=== PATIENT | male | born 1960 | race Two or more races ===

== ENCOUNTER 2023-04-22 15:22 | Emergency (ER) | payer OTHER ==
[~2023-04-22] VITALS: Ht 167.6 cm; Wt 110.0 kg
[2023-04-22] MEDS ORDERED: HYDROcodone-ACET 10/325MG TAB PO ONE (15:45)
[2023-04-22] MEDS ORDERED: IBUP-1455 PO (16:34)
[2023-04-22] MEDS ORDERED: HYDR-4902 PO (16:52)
[2023-04-22 18:27] VITALS: BP 148/78; PULSE 105; RESP 22; TEMP 98.2; O2SAT 98
== END 2023-04-22 18:34 | disposition home or self-care (01) ==
LOC: ER 15:22
DX: S40.012A Contusion of left shoulder, initial encounter (principal); S40.022A Contusion of left upper arm, initial encounter; Z79.1 Long term (current) use of non-steroidal anti-inflammatories (NSAID); W18.39XA Other fall on same level, initial encounter; Y93.89 Activity, other specified; Y92.89 Other specified places as the place of occurrence of the external cause; Y99.8 Other external cause status
CPT/HCPCS: 73030; 73080; 73090; 73130

== ENCOUNTER 2024-01-31 13:59 | Emergency (ER) | payer OTHER ==
[~2024-01-31] VITALS: Ht 170.2 cm; Wt 115.7 kg
[~2024-01-31 13:59] MED LIST: HYDR-4902 PO; IBUP-1455 PO
--- NOTE | 2024-01-31 15:25 | ED.PDOC ---
Eye-HPI HPI Comments HPI: Poor Historian. 63-year-old male presents to the emergency department for acute and chronic left neck swelling with pain. He said that the swelling got worse last night in the pain got worse last night. Patient was recently evaluated at [facility] and he was discharged home he went to see his PCP who told him you were diagnosed with some type of cancer they do not know which kind. He is supposed to follow up with Oncology this coming Tuesday. Denies any difficulty swallowing. This pain with trying to open his mouth fully. Vitals: Temp: 99.1 F Heart rate: 106 RR: 20 BP: 154/98 02 sat: 95 % on room air PMH: HTN, DM, HYPOTHYROIDISM PSH: APPENDECTOMY, L KNEE REPLACEMENT Social history: DENIES tobacco use, ENDORSES ETOH use, DENIES drug use Meds: UNKNOWN Allergies: DENIES REVIEW OF SYSTEMS: CONSTITUTIONAL: Denies acute: fever, diaphoresis, chills, HEAD: Denies acute: headache, photophobia Eyes: Denies acute: Double vision, vision loss, eye pain, eye discharge. EARS: Denies acute: tinnitus, hearing loss, ear discharge, ear pain, THROAT: Denies acute: sore throat, difficulty swallowing , pain with swallowing, change in voice. NECK: Denies acute: neck pain, stiff neck. HEART: Denies acute : chest pain, palpitations, LUNGS: Denies acute: SOB, wheezing, cough, hemoptysis ABDOMEN: Denies acute: abdominal pain, Nausea, Vomiting, diarrhea, melena , hematemesis, hematochezia SKIN: Denies acute: rash, redness, lesions, itchiness. EXTREMITIES: Denies acute: calf pain, numbness, tingling, weakness, denies pain in extremity. Denies acute: Low back pain. Neuro: Denies acute: focal neurological deficit, motor or sensory focal neurological deficit, tremors, seizure like activity, confusion, dizziness, change in mental status, loss of bowel or bladder function, cauda equina like symptoms. : Denies acute: dysuria, hematuria, flank pain, increase in urinary frequency. PSYCH: Denies acute: hallucination, suicidal ideation, homicidal ideation. PHYSICAL EXAM: General: Mild to moderate acute distress, awake and alert. Head: normocephalic, atraumatic. Neck: supple, trachea is midline, noted left submandibular left neck swelling that is tender to palpation. Throat: Normal phonation. No airway compromise or obstruction, tongue is midline. No deviation. Eyes:, no erythema, no purulent discharge, no proptosis, no icterus. Heart: regular rate, regular rhythm, no significant murmur appreciated. Lungs: no apparent respiratory distress, Able to speak in full sentences. No wheezing, no rhonchi, no crackles. No stridors Clear to auscultation bilaterally. Abdomen: non tender to palpation, non distended, soft, no guarding, no rebound, + bowel sounds. Neuro: Awake, Alert, oriented to name, self, situation, follows commands GCS=15. Speech is normal. Skin: no petechia, no purpura, no cyanosis, non-pale, not jaundice. Lower extremities: --no - Pitting edema no deformity, no focal swelling, no calf TTP. Makes eye contact. moves all four extremities. Face: no apparent facial droop. Ambulating in the ED independently. No nystagmus. No nuchal rigidity, Kernig's sign, Brudzinski's sign, no meningeal signs. Chief Complaint: Face pain Time Seen by MD: 15:45 Primary Care Provider: LUIS Krishnan Notes: Medications, Allergies Allergies: Coded Allergies: NO KNOWN ALLERGIES (Unverified , 01/31/24) Home Meds Active Scripts Hydrocodone-Acetaminophen (Hydrocodone Bitartrate/AC 5-325 mg) 1 Tab Tab, 1 TAB PO Q6HP PRN, #20 TAB Prov:NADIA SANTILLAN PAC 04/22/23 Ibuprofen Micronized (Ibuprofen) 800 Mg Tab, 800 MG PO Q8HP PRN, #30 TAB Prov:NADIA SANTILLAN PAC 04/22/23 Information Source: Patient, Spouse Mode of Arrival: Ambulatory Brought in by: SPOUSE Past Medical History PAST MEDICAL HISTORY: DM, HTN, Thyroid Surgical History: Appendectomy Family History Family History: Reviewed,noncontributory to illness, No family hx of Cancer, No family hx of DM, No family hx of Heart heather, No family hx of HTN, No family hx ofKidney heather, No family hx of Liver heather, No family hx of Lung heather, No family hx of Stroke Social History Smoker: Non-Smoker Alcohol: Occasionally Drugs: Denies Drug Use Lives In: Home Was a procedure done? Was a procedure done?: No EENT DIFF Eye: N/A Sore Throat: Epiglottitis, Jose Antonio's Angina, Peritonsillar Abscess, Peritonsillar Cellulitis, Pharyngitis, Other (Gland inflammation, abscess, neoplasm, vascular compromise/injury) X-Ray, Labs, Meds, VS Vital Signs Date Time Temp Pulse Resp B/P (MAP) Pulse Ox O2 Delivery O2 Flow Rate FiO2 01/31/24 15:43 96 16 97 Room Air* 0 21 01/31/24 15:42 97.9 95 16 144/93 (110) 97 97.9 01/31/24 14:30 99.1 106 20 154/98 (116) 95 Lab Test 01/31/24 15:48 Range/Units White Blood Count 11.6 H 4.4-10.8 10^3/uL Red Blood Count 5.32 4.5-5.90 10^6/uL Hemoglobin 18.0 H 13.5-17.5 g/dL Hematocrit 50.7 41.0-53.0 % Mean Corpuscular Volume 95.3 80.0-100.0 fL Mean Corpuscular Hemoglobin 33.8 H 28.0-32.0 pg Mean Corpuscular Hemoglobin Concent 35.5 32.0-36.0 g/dL Red Cell Distribution Width 13.0 11.8-14.3 % Platelet Count 102 L 140-450 10^3/uL Mean Platelet Volume 9.2 6.9-10.8 fL Neutrophils (%) (Auto) 74.7 37.0-80.0 % Lymphocytes (%) (Auto) 15.5 10.0-50.0 % Monocytes (%) (Auto) 9.1 0.0-12.0 % Eosinophils (%) (Auto) 0.4 0.0-7.0 % Basophils (%) (Auto) 0.3 0.0-2.0 % Neutrophils # (Auto) 8.7 H 1.6-8.6 10 ^3/uL Lymphocytes # (Auto) 1.8 0.4-5.4 10 ^3/uL Monocytes # (Auto) 1.1 0-1.3 10 ^3/uL Eosinophils # (Auto) 0 0-0.8 10 ^3/uL Basophils # (Auto) 0 0-0.2 10 ^3/uL Nucleated Red Blood Cells 0.2 % Erythrocyte Sedimentation Rate 7 0-20 mm/hr Sodium Level 134 L 136-145 mmol/L Potassium Level 4.1 3.5-5.1 mmol/L Chloride Level 102 98-107 mmol/L Carbon Dioxide Level 24 20-31 mmol/L Anion Gap 8 5-15 Blood Urea Nitrogen 7 L 9-23 mg/dL Creatinine 0.72 0.700-1.30 mg/dL Glomerular Filtration Rate Calc 102 >90 mL/min BUN/Creatinine Ratio 9.7 L 10.0-20.0 Serum Glucose 238 H 74-106 mg/dL Lactic Acid Level 1.4 0.4-2.0 mmol/L Calcium Level 9.9 8.7-10.4 mg/dL Total Bilirubin 1.1 H 0.2-1.0 mg/dL Aspartate Amino Transferase (AST) 60 H 13-40 U/L Alanine Aminotransferase (ALT) 106 H 7-40 U/L Alkaline Phosphatase 106 46-116 U/L Troponin I High Sensitivity < 3 L </=54 ng/L C-Reactive Protein High Sensitivity 0.51 <1.0 mg/dL Total Protein 7.7 5.7-8.2 g/dL Albumin 4.2 3.2-4.8 g/dL [place] [address] Ph: [phone] DIAGNOSTIC IMAGING Diagnostic Imaging Report : [id number] Signed PATIENT: BRYNN HERRERA ACCT: [id number] UNIT: [id number] : 1960 LOC: ER ROOM / BED: / AGE / SEX: 63 / M ADM STATUS: REG ER SERVICE 1522 ORDERING PHYSICIAN: LUIS SCHMIDT DO PROCEDURE(s): NK2CT - NECK WITH CONTRAST SOFT REASON: L neck mass/pain ORDER NUMBER(s): [id number], ACCESSION NUMBER(s): [id number] Accession Number: [id number] Clinical History: L neck mass/pain Comparison: None Technique: After the intravenous administration of intravenous contrast, multi- slice CT scan of the neck was performed without complication. Radiation Dose Information: CT Dose: CTDI volume is 26.0 mGy. Dose-length product is 759.26 mGy*cm Findings: 3.3 by 4.7 by 3.4 cm hypodense mass with thin hyperdense/enhancing rim over the left submandibular region which may be associated with the asymmetrically enlarged left submandibular gland with associated adjacent fat stranding and mass effect on the adjacent aponeurosis laterally. The mass does not measure fluid. There is associated 1.2 cm in short axis prominent left level 1b lymph node . Additional subcentimeter level 2 lymph nodes are noted. The nasopharynx, oropharynx, hypopharynx, esophagus, and larynx demonstrate normal patency and contour without evidence of a soft tissue mass at this time. Bilaterally, the parotid, and right submandibular, glands unremarkable. The thyroid gland is normal in size, shape, and attenuation without evidence of calcification. Moderate to severe degenerative changes of the cervical spine. The lung apices are clear. Impression: 3.3 x 4.7 x 3.4 cm hypodense mass which measures soft tissue over the left submandibular region which appears to be associated with the asymmetrically enlarged left submandibular gland with associated yhbk-ktxlxpq-odrg-right submandibular subcutaneous fat edema. There is associated left-sided level 1B prominent lymph node. ATED BY: ZOFIA RETANA DO DICTATED DATE/TIME: 01/31/241814 SIGNED BY: ZOFIA RETANA DO SIGNED DATE/TIME: 01/31/241814 CC: Time of 1ST Reevaluation: 22:54 Reevaluation 1ST: Unchanged Patient Education/Counseling: Diagnosis, Treatment Family Education/Counseling: Diagnosis, Treatment Comments Patient presented with the above HPI.--neck mass and swelling----workup was initiated. patient was found with the above mentioned diagnosis. Patient was given: Fentanyl for pain control. Patient ED course and VS have been stabilized. Patient has been reassessed in the ED and remained in a stable condition. Pertinent incidental findings were discussed with the patient and/or family. Patient has been observed in the ED adequate length of time to insure improvement/stability. We attempted to transfer the patient to [facility] for higher level of care for ENT evaluation. Patient stated that he lives next to [place]. Patient did not want to wait. Patient decided to leave against medical advice and he said he will follow up at [place] himself. All the reports of any imaging studies that were ordered by myself were reviewed by myself. Departure 1 Departure Time of Disposition: 19:23 Impression: Primary Impression: Neck mass Additional Impressions: Neck swelling Left against medical advice Disposition: 07 LEFT AGAINST MEDICAL ADVICE Admit to: Tele Condition: Guarded Additional Instructions: below is a copy of your radiology CT report performed in the ED; [place] [address] Ph: [phone] DIAGNOSTIC IMAGING Diagnostic Imaging Report : [id number] Signed PATIENT: BRYNN HERRERA ACCT: [id number] UNIT: [id number] : 1960 LOC: ER ROOM / BED: / AGE / SEX: 63 / M ADM STATUS: REG ER SERVICE 1522 ORDERING PHYSICIAN: LUIS SCHMIDT DO PROCEDURE(s): NK2CT - NECK WITH CONTRAST SOFT REASON: L neck mass/pain ORDER NUMBER(s): [id number], ACCESSION NUMBER(s): [id number] Accession Number: [id number] Clinical History: L neck mass/pain Comparison: None Technique: After the intravenous administration of intravenous contrast, multi- slice CT scan of the neck was performed without complication. Radiation Dose Information: CT Dose: CTDI volume is 26.0 mGy. Dose-length product is 759.26 mGy*cm Findings: 3.3 by 4.7 by 3.4 cm hypodense mass with thin hyperdense/enhancing rim over the left submandibular region which may be associated with the asymmetrically enlarged left submandibular gland with associated adjacent fat stranding and mass effect on the adjacent aponeurosis laterally. The mass does not measure fluid. There is associated 1.2 cm in short axis prominent left level 1b lymph node . Additional subcentimeter level 2 lymph nodes are noted. The nasopharynx, oropharynx, hypopharynx, esophagus, and larynx demonstrate normal patency and contour without evidence of a soft tissue mass at this time. Bilaterally, the parotid, and right submandibular, glands unremarkable. The thyroid gland is normal in size, shape, and attenuation without evidence of calcification. Moderate to severe degenerative changes of the cervical spine. The lung apices are clear. Impression: 3.3 x 4.7 x 3.4 cm hypodense mass which measures soft tissue over the left submandibular region which appears to be associated with the asymmetrically enlarged left submandibular gland with associated fldo-sofblcb-lwtx-right easley bmandibular subcutaneous fat edema. There is associated left-sided level 1B prominent lymph node. ATED BY: ZOFIA RETANA DO DICTATED DATE/TIME: 01/31/241814 SIGNED BY: ZOFIA RETANA DO SIGNED DATE/TIME: 01/31/241814 CC: Discharged With: Self, Spouse Critical Care Note Critical Care Time?: No I personally scribed for LUIS SCHMIDT DO ([email or web address]) on 01/31/24 at 15:25. Electronically submitted by Catrina Zamudio ([employer]). I personally scribed for LUIS SCHMIDT DO ([email or web address]) on 01/31/24 at 15:46. Elec tronically submitted by Catrina Zamudio ([employer]). I personally scribed for LUIS SCHMIDT DO ([email or web address]) on 01/31/24 at 18:21. Electronically submitted by Catrina Zamudio ([email or web address]). I personally scribed for LUIS SCHMIDT DO ([email or web address]) on 01/31/24 at 19:11. Electronically submitted by Catrina Zamudio ([employer]). I personally scribed for LUIS SCHMIDT DO ([email or web address]) on 01/31/24 at 19:44. Electronically submitted by Catrina Zamudio ([facility] [employer]). LUIS SCHMIDT DO Jan 31, 2024 15:25
[2024-01-31 15:42] VITALS: BP 144/93; TEMP 97.9
[2024-01-31 15:43] VITALS: PULSE 96; RESP 16; O2SAT 97
[2024-01-31 16:11] LABS: Basophils # (auto) 0 10 ^3/uL (0-0.2); Lymphocytes # (auto) 1.8 10 ^3/uL (0.4-5.4); Mean Corpuscular Volume 95.3 fL (80.0-100.0)
[2024-01-31 16:13] LABS: Basophils % (auto) 0.3 % (0.0-2.0); Eosinophils # (auto) 0 10 ^3/uL (0-0.8); Eosinophils % (auto) 0.4 % (0.0-7.0); Hematocrit 50.7 % (41.0-53.0); Lymphocytes % (auto) 15.5 % (10.0-50.0); Mean Corpuscular Hemoglobin 33.8 pg (28.0-32.0); Mean Corpuscular Hgb Conc. 35.5 g/dL (32.0-36.0); Monocytes # (auto) 1.1 10 ^3/uL (0-1.3); Monocytes % (auto) 9.1 % (0.0-12.0); Neutrophils # (auto) 8.7 10 ^3/uL (1.6-8.6); Neutrophils % (auto) 74.7 % (37.0-80.0); Nucleated Red Blood Cells % 0.2 %; Platelet Count (auto) 102 10^3/uL (140-450); Red Blood Cells 5.32 10^6/uL (4.5-5.90); White Blood Cell 11.6 10^3/uL (4.4-10.8)
[2024-01-31 16:31] LABS: Alanine Aminotransferase 106 U/L (7-40); Albumin 4.2 g/dL (3.2-4.8); Alkaline Phosphatase 106 U/L (46-116); Anion Gap 8 (5-15); Aspartate Aminotransferase 60 U/L (13-40); BUN/Creatinine Ratio 9.7 (10.0-20.0); Bilirubin, Total 1.1 mg/dL (0.2-1.0); Blood Urea Nitrogen 7 mg/dL (9-23); CRP High Sensitivity 0.51 mg/dL (<1.0); Calcium 9.9 mg/dL (8.7-10.4); Carbon Dioxide 24 mmol/L (20-31); Chloride 102 mmol/L (98-107); Glucose 238 mg/dL (74-106); Potassium 4.1 mmol/L (3.5-5.1); Sodium 134 mmol/L (136-145); Total Protein 7.7 g/dL (5.7-8.2)
[2024-01-31] MEDS ORDERED: fentaNYL CITRATE 100 MCG/2 ML VL IV ONE (16:45)
[2024-01-31] MEDS ORDERED: IOHEXOL 300 MG/ML 100ML BOTTLE IJ ONE (17:11)
[2024-01-31 17:27] LABS: Erythrocyte Sedimentation Rate 7 mm/hr (0-20)
--- NOTE | 2024-01-31 18:18 | DVH ---
Accession Number: [id number] Clinical History: L neck mass/pain Comparison: None Technique: After the intravenous administration of intravenous contrast, multi-slice CT scan of the n jett was performed without complication. Radiation Dose Information: CT Dose: CTDI volume is 26.0 mGy. Dose-length product is 759.26 mGy*cm Findings: 3.3 by 4.7 by 3.4 cm hypodense mass with thin hyperdense/enhancing rim over the left submandibular re gion which may be associated with the asymmetrically enlarged left submandibular gland with associate d adjacent fat stranding and mass effect on the adjacent aponeurosis laterally. The mass does not juan jose sure fluid. There is associated 1.2 cm in short axis prominent left level 1b lymph node . Additional subcentimet er level 2 lymph nodes are noted. The nasopharynx, oropharynx, hypopharynx, esophagus, and larynx demonstrate normal patency and contou r without evidence of a soft tissue mass at this time. Bilaterally, the parotid, and right submandibular, glands unremarkable. The thyroid gland is normal in size, shape, and attenuation without evidence of calcification. Moderate to severe degenerative changes of the cervical spine. The lung apices are clear. Impression: 3.3 x 4.7 x 3.4 cm hypodense mass which measures soft tissue over the left submandibular region which appears to be associated with the asymmetrically enlarged left submandibular gland with associated l kdd-npgdxco-gzbp-right submandibular subcutaneous fat edema. There is associated left-sided level 1B prominent lymph node.
== END 2024-01-31 19:23 | disposition left against medical advice (07) ==
LOC: ER 13:59
DX: R22.1 Localized swelling, mass and lump, neck (principal); I10 Essential (primary) hypertension; E11.9 Type 2 diabetes mellitus without complications; E03.9 Hypothyroidism, unspecified; Z90.49 Acquired absence of other specified parts of digestive tract; Z96.652 Presence of left artificial knee joint; Z79.899 Other long term (current) drug therapy; Z53.29 Procedure and treatment not carried out because of patient's decision for other reasons
CPT/HCPCS: 36415; 70491; 80053; 83605; 84484; 85025; 85652; 86141; 99285; Q9967

== ENCOUNTER → 2024-07-04 | Outpatient (CLI) | payer OTHER ==
--- NOTE | 2024-07-04 12:10 | DVH ---
PROCEDURE: ULTRASOUND GUIDED PARACENTESIS HISTORY: 63 Male requiring paracentesis. TECHNIQUE: The risks and benefits of the procedure including but not limited to bleeding, infection and injury t o abdominal organs were explained to the patient and written informed consent was obtained. Optimal site for puncture was determined using ultrasound and the area sterilized and draped. Using a 5 [employer] Res[employer] catheter, paracentesis was performed in the right lower abdomen. Approximately 9 li ters of straw colored fluid was removed. The patient tolerated the procedure well. There were no im mediate complications. IMPRESSION: Ultrasound-guided paracentesis with no immediate complications.
[2024-07-04 13:35] LABS: Body Fluid Red Blood Cells 1990 CUMM (0-2000); Body Fluid White Blood Cells 311 CUMM (0-200)
[2024-07-05 13:07] LABS: Protein, Body Fluid 1.7 g/dL (.)
== END | disposition home or self-care (01) ==
LOC: XYW 09:24
PROVIDERS: ATTEND Internal Medicine Gastroenterology
DX: R18.8 Other ascites (principal)
CPT/HCPCS: 49083; 83986; 87205; 88104; 88305; 88342; 89051; C1729; 76705; 76942

== ENCOUNTER → 2024-07-11 | Outpatient (CLI) | payer OTHER ==
--- NOTE | 2024-07-11 09:13 | DVH ---
US PARACENTESIS, HISTORY: ASCITES PROCEDURE: Informed consent was obtained. The patient was placed in supine position. A limited locali zation ultrasound of the abdomen was obtained, and the skin site over the largest pocket of fluid was marked and entry site was prepped with chlorhexidine which was allowed to dry and draped in the usua l sterile fashion. Time out was performed. Following administration of 1% lidocaine local anesthetic, a 5 Hungarian centesis needle catheter was percutaneously inserted into the peritoneal collection until fluid was aspirated. The catheter was advanced into the fluid collection and the needle removed. Abo ut 5200 cc of fluid was aspirated and specimen sent for appropriate cultures/cytology/cultures and cy tology. The catheter was then removed and a sterile dressing applied. No immediate complication was identified. FINDINGS: Limited ultrasound imaging demonstrates moderate ascites. Aspirated fluid was clear and ser ous. IMPRESSION: US-guided paracentesis with 5.2L removed.
[2024-07-11 13:11] LABS: Body Fluid Red Blood Cells 2073 CUMM (0-2000); Body Fluid White Blood Cells 643 CUMM (0-200)
[2024-07-12 14:06] LABS: Protein, Body Fluid 1.7 g/dL (.)
== END | disposition home or self-care (01) ==
LOC: XYW 07:31
PROVIDERS: ATTEND Internal Medicine Gastroenterology
DX: R18.8 Other ascites (principal); E66.9 Obesity, unspecified; Z68.38 Body mass index [BMI] 38.0-38.9, adult; Z79.82 Long term (current) use of aspirin; Z79.899 Other long term (current) drug therapy; Z86.2 Personal history of diseases of the blood and blood-forming organs and certain disorders involving the immune mechanism; Z90.49 Acquired absence of other specified parts of digestive tract; Z98.890 Other specified postprocedural states; Z87.891 Personal history of nicotine dependence; Z83.3 Family history of diabetes mellitus; Z82.49 Family history of ischemic heart disease and other diseases of the circulatory system
CPT/HCPCS: 49083; 83986; 87205; 89051; C1729; 76942

== ENCOUNTER → 2024-07-18 | Outpatient (CLI) | payer OTHER ==
--- NOTE | 2024-07-18 09:42 | DVH ---
US PARACENTESIS, HISTORY: ASCITES PROCEDURE: Informed consent was obtained. The patient was placed in supine position. A limited locali zation ultrasound of the abdomen was obtained, and the skin site over the largest pocket of fluid was marked and entry site was prepped with chlorhexidine which was allowed to dry and draped in the usua l sterile fashion. Time out was performed. Following administration of 1% lidocaine local anesthetic, a 5 [place] centesis needle catheter was percutaneously inserted into the peritoneal collection until fluid was aspirated. The catheter was advanced into the fluid collection and the needle removed. Abo ut 3600 cc of fluid was aspirated . The catheter was then removed and a sterile dressing applied. No immediate complication was identified. FINDINGS: Limited ultrasound imaging demonstrates mild ascites. Aspirated fluid was clear and serous. IMPRESSION: US-guided paracentesis with 3.6L removed.
[2024-07-18 13:12] LABS: Body Fluid Red Blood Cells 2591 CUMM (0-2000); Body Fluid White Blood Cells 622 CUMM (0-200)
[2024-07-19 12:07] LABS: Protein, Body Fluid 1.7 g/dL (.)
== END | disposition home or self-care (01) ==
LOC: XYW 07:37
PROVIDERS: ATTEND Internal Medicine Gastroenterology
DX: R18.8 Other ascites (principal); K74.60 Unspecified cirrhosis of liver; E78.5 Hyperlipidemia, unspecified; E11.9 Type 2 diabetes mellitus without complications; I10 Essential (primary) hypertension; Z79.899 Other long term (current) drug therapy; Z79.84 Long term (current) use of oral hypoglycemic drugs; Z98.890 Other specified postprocedural states
CPT/HCPCS: 49083; 76705; 83986; 87205; 89051; C1729; 76942

== ENCOUNTER → 2024-08-03 | Outpatient (CLI) | payer OTHER ==
--- NOTE | 2024-08-03 09:37 | DVH ---
US PARACENTESIS, HISTORY: ASCITES PROCEDURE: Informed consent was obtained. The patient was placed in supine position. A limited locali zation ultrasound of the abdomen was obtained, and the skin site over the largest pocket of fluid was marked and entry site was prepped with chlorhexidine which was allowed to dry and draped in the usua l sterile fashion. Time out was performed. Following administration of 1% lidocaine local anesthetic, a 5 Romanian centesis needle catheter was percutaneously inserted into the peritoneal collection until fluid was aspirated. The catheter was advanced into the fluid collection and the needle removed. [place]bo [place] 3950 cc of fluid was aspirated . The catheter was then removed and a sterile dressing applied. No immediate complication was identified. FINDINGS: Limited ultrasound imaging demonstrates mild to moderate ascites. Aspirated fluid was clear and serous. IMPRESSION: US-guided paracentesis with 4L removed.
[2024-08-03 12:07] LABS: Body Fluid Red Blood Cells 3360 CUMM (0-2000); Body Fluid White Blood Cells 116 CUMM (0-200)
[2024-08-04 12:07] LABS: Protein, Body Fluid 1.7 g/dL (.)
== END | disposition home or self-care (01) ==
LOC: XYW 08:32
PROVIDERS: ATTEND Internal Medicine Gastroenterology
DX: R18.8 Other ascites (principal); I10 Essential (primary) hypertension; E78.5 Hyperlipidemia, unspecified; E03.9 Hypothyroidism, unspecified; Z79.899 Other long term (current) drug therapy; Z98.890 Other specified postprocedural states
CPT/HCPCS: 49083; 76705; 76942; 83986; 87205; 89051; C1729

== ENCOUNTER → 2024-08-10 | Outpatient (CLI) | payer OTHER ==
--- NOTE | 2024-08-10 12:58 | DVH ---
Procedure: US ABDOMEN LIMITED 08/10/2024 09:07 AM Indication: ASCITES Comparison: None Technique: Sonogram of the all 4 abdominal quadrants were obtained utilizing grayscale FINDINGS: Trace fluid noted in the right upper quadrant only. IMPRESSION: Trace ascites not enough for safe paracentesis.
== END | disposition home or self-care (01) ==
LOC: XYW 08:23
PROVIDERS: ATTEND Internal Medicine Gastroenterology
DX: R18.8 Other ascites (principal); K74.60 Unspecified cirrhosis of liver; E11.8 Type 2 diabetes mellitus with unspecified complications; I10 Essential (primary) hypertension; E03.9 Hypothyroidism, unspecified
CPT/HCPCS: 76705

== ENCOUNTER 2024-08-31 12:31 | Outpatient (CLI) | payer OTHER ==
--- NOTE | 2024-08-31 13:27 | DVH ---
INDICATION: ASCITES TECHNIQUE: Multiple real-time sonographic images of the abdomen were obtained. COMPARISON: US ABDOMEN LIMITED on DOS: 08/17/24, US ABDOMEN LIMITED on DOS: 08/10/24 FINDINGS: Trace ascites IMPRESSION: Trace ascites.
== END 2024-08-31 17:00 | disposition home or self-care (01) ==
LOC: XYW 12:31
PROVIDERS: ATTEND Internal Medicine Gastroenterology
DX: R18.8 Other ascites (principal); I10 Essential (primary) hypertension; E11.9 Type 2 diabetes mellitus without complications; K74.60 Unspecified cirrhosis of liver; E03.9 Hypothyroidism, unspecified
CPT/HCPCS: 76705

== ENCOUNTER → 2024-09-20 | Outpatient (CLI) | payer OTHER ==
--- NOTE | 2024-09-20 13:44 | DVH ---
Limited Abdominal Ultrasound - Ascites Evaluation Clinical History: ASCITES Comparison: US ABDOMEN LIMITED on DOS: 08/31/24, US ABDOMEN LIMITED on DOS: 08/17/24, US ABDOMEN LIMITE D on DOS: 08/10/24 Technique/Findings/Impression: Limited sonographic evaluation of the abdomen was performed to assess for ascites. There is no appreciable ascites detected.
== END | disposition home or self-care (01) ==
LOC: US 12:30
PROVIDERS: ATTEND Internal Medicine Gastroenterology
DX: K74.60 Unspecified cirrhosis of liver (principal); R18.8 Other ascites
CPT/HCPCS: 76705

== ENCOUNTER → 2024-11-15 | Day surgery (SDC) | payer OTHER ==
[~2024-11-15] VITALS: Ht 170.2 cm; Wt 113.4 kg
[~2024-11-15] MED LIST changes: +FURO20TA3 PO; +GLIP5TAB21 PO; +GLYCOPYRROLATE 0.2 MG/ML 1ML VIAL ONE; -HYDR-4902 PO; -IBUP-1455 PO; +LEVO25TA6 PO; +LIDOCAINE 2% (LOCAL ANESTH.) PF 5ml SDV ONE; +LOSA-533 PO; +METF-372 PO; +MIDAZOLAM HCL 2MG/2ML 2ml VIAL (1mg/ml) ONE; +MORP15TA PO; +ONDANSETRON HCL 4 MG/2 ML VIAL ONE; +PROPOFOL 10 MG/ML 20 ML IV ONE; +SPIR50TA5 PO; +fentaNYL CITRATE 100 MCG/2 ML VL ONE
--- NOTE | 2024-11-15 10:43 | DVHHP2 ---
GI H&P Pre-Op Assessment Date: 11/15/24 Chief complaint: Cirrhosis, esophageal variceal screening HPI: per clinic note Past medical history: per clinic note Past surgical history: per clinic note Family history: per clinic note Physical exam: General: NAD, AAOX3 HEENT: PERRL, no scleral icterus, normal hearing, gums without lesions or bleeding, oropharynx clear without erythema or exudate. Neck: Supple without enlargement of the thyroid, or lymphadenopathy. Chest: Normal size and shape, no tenderness, lung aguilar clear to auscultation and percussion, nonlabored breathing. Heart: RRR, no murmur Abdomen: non-distended, no tenderness to palpation, +BS, no hepatosplenomegaly Extremities: no edema Neurological: CN II-XII intact, sensation intact in all extremities, 5+ strength in all extremities Skin: No rashes, No jaundice Assessment: - Cirrhosis, esophageal variceal screening Plan: - EGD - Risks (bleeding, infection, perforation, reaction to sedation medications and cardiopulmonary arrest) and benefit of the procedure were explained to patient. Patient agrees to undergo the procedure. JA HUERTA MD Nov 15, 2024 10:43
[2024-11-15 10:57] VITALS: PULSE 90; RESP 13; TEMP 97.9; O2SAT 96
--- NOTE | 2024-11-15 11:00 | DVHOP2 ---
Operative Report DATE OF OPERATION: 11/15/24 PROCEDURE: Upper Endoscopy. PREOPERATIVE INDICATION: The patient is a 64 -year-old male with cirrhosis undergoing endoscopy for esophageal variceal screening POSTOPERATIVE DIAGNOSES: 1. Portal hypertensive gastropathy 2. One esophageal varix was banded. PROCEDURE PERFORMED BY: Julian Donato SCOPE: Olympus videoendoscope. ASA CLASS: 4 PREOPERATIVE MEDICATIONS: MAC with Dr Segal PROCEDURE IN DETAIL: After obtaining an informed consent, the patient was placed on left lateral decubitus position. The patient was then sedated with the above medications. A bite block was placed between his teeth. The endoscope was then passed through the oropharynx, into the esophagus, and through the stomach and pylorus up to the second and third part of the duodenum. The duodenum was normal in appearance. There was portal hypertensive gastropathy. The GE junction was normal in appearance at 40 cm. And esophageal varix in the distal esophagus was banded. The endoscope was then withdrawn. The patient tolerated the procedure well without difficulty. COMPLICATIONS : None SPECIMENS: None DISPOSITION: D/C to home PLAN: 1. Patient will need repeat EGD in 4-8 weeks to reassess the esophageal varices. JULIAN DOANTO MD Nov 15, 2024 11:00
--- NOTE | 2024-11-15 11:01 | DVHDS2 ---
Physician Discharge Progress N Final Diagnosis: Portal hypertensive gastropathy, esophageal varix Operations or Procedures: Operations or Procedures EGD with esophageal variceal banding Condition on Discharge: Good Disposition: Home Discharge Instructions: Diet: See Comment Diet comment: Liquid diet for next 24 hours. Activity: Light activity Medications: Resume previous home medications Follow Up Care: Discharge Statement: "Patient was advised to return to the ER or call 911 if any headaches, diz ziness, shortness of breath, chest pain, abdominal pain, bleeding, fevers, or worsening of medical condition. Patient was counseled about treatment plan, medications, possible side effects, patientverbalized understanding. All questions were answered to the best of my ability. This discharge took greater then 30 minutes in planning, reviewing documentation, counseling the patient, and discussing with other team members." JA HUERTA MD Nov 15, 2024 11:01
[2024-11-15 11:45] VITALS: BP 100/57; PULSE 8; RESP 19; O2SAT 95
== END | disposition home or self-care (01) ==
LOC: GI 09:30
PROVIDERS: ATTEND Internal Medicine Gastroenterology
DX: K74.69 Other cirrhosis of liver (principal); I85.10 Secondary esophageal varices without bleeding; K76.6 Portal hypertension; K31.89 Other diseases of stomach and duodenum; R18.8 Other ascites; I10 Essential (primary) hypertension; E11.9 Type 2 diabetes mellitus without complications; E03.9 Hypothyroidism, unspecified; Z85.72 Personal history of non-Hodgkin lymphomas
CPT/HCPCS: 43244; 82962; J2003; J2250; J2405; J2704; J3010; J7030

== ENCOUNTER 2025-01-24 07:36 | Day surgery (SDC) | payer OTHER ==
[~2025-01-24] VITALS: Ht 152.4 cm; Wt 108.9 kg
[~2025-01-24 07:36] MED LIST changes: -GLIP5TAB21 PO; -GLYCOPYRROLATE 0.2 MG/ML 1ML VIAL ONE; -LIDOCAINE 2% (LOCAL ANESTH.) PF 5ml SDV ONE; -LOSA-533 PO; -MIDAZOLAM HCL 2MG/2ML 2ml VIAL (1mg/ml) ONE; -MORP15TA PO; -ONDANSETRON HCL 4 MG/2 ML VIAL ONE; -PROPOFOL 10 MG/ML 20 ML IV ONE; -fentaNYL CITRATE 100 MCG/2 ML VL ONE
[2025-01-24] MEDS ORDERED: LIDOCAINE 2% (LOCAL ANESTH.) PF 5ml SDV ONE (08:50)
[2025-01-24] MEDS ORDERED: PROPOFOL 10 MG/ML 20 ML IV ONE (08:50)
[2025-01-24 09:00] VITALS: PULSE 78; RESP 20; O2SAT 98
--- NOTE | 2025-01-24 09:01 | DVHHP2 ---
GI H&P Pre-Op Assessment Date: 01/24/25 Chief complaint: Cirrhosis and esophageal varices HPI: per clinic note Past medical history: per clinic note Past surgical history: per clinic note Family history: per clinic note Physical exam: General: NAD, AAOX3 HEENT: PERRL, no scleral icterus, normal hearing, gums without lesions or bleeding, oropharynx clear without erythema or exudate. Neck: Supple without enlargement of the thyroid, or lymphadenopathy. Chest: Normal size and shape, no tenderness, lung aguilar clear to auscultation and percussion, nonlabored breathing. Heart: RRR, no murmur Abdomen: non-distended, no tenderness to palpation, +BS, no hepatosplenomegaly Extremities: no edema Neurological: CN II-XII intact, sensation intact in all extremities, 5+ strength in all extremities Skin: No rashes, No jaundice Assessment: - cirrhosis and esophageal varices Plan: - EGD - Risks (bleeding, infection, perforation, reaction to sedation medications and cardiopulmonary arrest) and benefit of the procedure were explained to patient. Patient agrees to undergo the procedure. JA HUERTA MD Jan 24, 2025 09:01
--- NOTE | 2025-01-24 09:03 | DVHOP2 ---
Operative Report DATE OF OPERATION: 01/24/25 PROCEDURE: Upper Endoscopy. PREOPERATIVE INDICATION: The patient is a 64 -year-old male with cirrhosis undergoing endoscopy for esophageal variceal surveillance. POSTOPERATIVE DIAGNOSES: 1. Portal hypertensive gastropathy 2. No esophageal varices were observed. PROCEDURE PERFORMED BY: Julian Donato SCOPE: Olympus videoendoscope. ASA CLASS: 3 PREOPERATIVE MEDICATIONS: MAC with Jean Carlos DRISCOLL PROCEDURE IN DETAIL: After obtaining an informed consent, the patient was placed on his back. The patient was then sedated with the above medications. A bite block was placed between his teeth. The endoscope was then passed through the oropharynx, into the esophagus, and through the stomach and pylorus up to the second and third part of the duodenum. The duodenum was normal in appearance. There was portal hypertensive gastropathy. The GE junction was normal in appearance at 40 cm. The esophagus was normal in appearance. No e sophageal varices were observed. The endoscope was then withdrawn. The patient tolerated the procedure well without difficulty. COMPLICATIONS : None SPECIMENS: None DISPOSITION: D/C to home PLAN: 1. Await for biopsy result 2. Will repeat EGD in one year for esophageal varices surveillance. JULIAN DONATO MD Jan 24, 2025 09:03
--- NOTE | 2025-01-24 09:03 | DVHDS2 ---
Physician Discharge Progress N Final Diagnosis: Portal hypertensive gastropathy Operations or Procedures: Operations or Procedures EGD Condition on Discharge: Good Disposition: Home Discharge Instructions: Diet: Regular Activity: No Restrictions, As Tolerated Medications: Resume previous home medications Follow Up Care: Discharge Statement: "Patient was advised to return to the ER or call 911 if any headaches, dizziness, shortness of breath, chest pain, abdominal pain, bleeding, fevers, or worsening of medical condition. Patient was counseled about treatment plan, medications, possible side effects, patientverbalized understanding. All questions were answered to the best of my ability. This discharge took greater then 30 minutes in planning, reviewing documentation, counseling the patient, and discussing with other team members." JA HUERTA MD Jan 24, 2025 09:03
[2025-01-24 09:30] VITALS: BP 128/76; PULSE 73; RESP 16; O2SAT 95
--- NOTE | 2025-01-26 12:17 | ECG ---
[facility] Test Date: 2025-01-24 Test Time: 08:26:43 Pat Name: BRYNN HERRERA Department: Room: Gender: M Horse Rancher: MARIBELL : 1960 Requested By: JA HUERTA Order Number: [id number] Reading MD: Jayro Sandoval Measurements Intervals [place] Rate: 72 P: 39 PA: 178 QRS: -24 QRSD: 88 T: -4 QT: 402 QTc: 440 Interpretive Statements Normal sinus rhythm Electronically Signed On 01-28-2025 11:05:35 PST by Jayro Sandoval Please click the below link to view image of tracing.
== END 2025-01-24 09:40 | disposition home or self-care (01) ==
LOC: GI 07:36
PROVIDERS: ATTEND Internal Medicine Gastroenterology
DX: K74.60 Unspecified cirrhosis of liver (principal); K76.6 Portal hypertension; K31.89 Other diseases of stomach and duodenum; I85.10 Secondary esophageal varices without bleeding; I10 Essential (primary) hypertension; E11.9 Type 2 diabetes mellitus without complications; E03.9 Hypothyroidism, unspecified; E66.01 Morbid (severe) obesity due to excess calories; Z68.37 Body mass index [BMI] 37.0-37.9, adult; Z87.891 Personal history of nicotine dependence; Z86.718 Personal history of other venous thrombosis and embolism; Z79.899 Other long term (current) drug therapy; Z79.84 Long term (current) use of oral hypoglycemic drugs; Z79.890 Hormone replacement therapy
CPT/HCPCS: 43235; 82962; J2003; J2704; J7030; 93005